=== PATIENT | male | born 1935 | race Asian ===

== ENCOUNTER 2022-01-21 22:08 | Inpatient (IN) | payer MEDICARE ==
[~2022-01-21] VITALS: Ht 165.1 cm; Wt 71.0 kg
[2022-01-21] MEDS ORDERED: amLODIPine BESYLATE 5 MG TAB PO ONE (23:15)
[2022-01-22 00:53] LABS: Urine Amorphous Crystal FEW /hpf (None Seen); Urine Bacteria NONE SEEN /hpf (None Seen); Urine Blood Negative /uL (Negative); Urine Specific Gravity 1.015 (1.001-1.035); Urine WBC <1 /hpf (0 - 3)
[2022-01-22 01:07] LABS: Basophils # (auto) 0 10 ^3/uL (0-0.2); Basophils % (auto) 0.4 % (0.0-2.0); Eosinophils # (auto) 0 10 ^3/uL (0-0.8); Eosinophils % (auto) 0.2 % (0.0-7.0); Hematocrit 38.6 % (41.0-53.0); Hemoglobin 13.2 g/dL (13.5-17.5); Lymphocytes # (auto) 0.6 10 ^3/uL (0.4-5.4); Lymphocytes % (auto) 7.2 % (10.0-50.0); Mean Corpuscular Hemoglobin 33.5 pg (28.0-32.0); Mean Corpuscular Hgb Conc. 34.3 g/dL (32.0-36.0); Mean Corpuscular Volume 97.8 fL (80.0-100.0); Monocytes # (auto) 0.2 10 ^3/uL (0-1.3); Neutrophils # (auto) 6.9 10 ^3/uL (1.6-8.6); Neutrophils % (auto) 89.2 % (37.0-80.0); Red Blood Cells 3.94 10^6/uL (4.5-5.90); White Blood Cell 7.7 10^3/uL (4.4-10.8)
[2022-01-22 01:25] LABS: Calcium 8.7 mg/dL (8.5-10.1); Potassium 4.2 mmol/L (3.5-5.1)
[2022-01-22 01:28] LABS: BUN/Creatinine Ratio 28.9
[2022-01-22 01:31] LABS: Bilirubin, Total 1.2 mg/dL (0.2-1.0); Total Protein 6.9 g/dL (6.4-8.2)
[2022-01-22] MEDS ORDERED: hydrALAZINE HCL 20 MG/ML VL IV ONE (02:00)
[2022-01-22] MEDS ORDERED: ONDANSETRON HCL 4 MG/2 ML VIAL IV PRN (04:45)
[2022-01-22] MEDS ORDERED: DEXTROSE (50%) 50ML SYRG IV PRN (04:45)
[2022-01-22] MEDS ORDERED: ACETAMINOPHEN 325 MG TAB PO PRN (04:45)
[2022-01-22] MEDS ORDERED: MORPHINE SULFATE INJ 2 MG/ml SYRG IV PRN (04:45)
[2022-01-22] MEDS ORDERED: NITROGLYCERIN 0.4 MG SL TAB SL PRN (04:45)
[2022-01-22] MEDS ORDERED: TEMAZEPAM 15 MG CAP PO PRN (04:45)
[2022-01-22] MEDS: LEVOTHYROXINE SODIUM 112 MCG TAB PO SCH (06:44)
[2022-01-22] MEDS: ACCU-CHEK COMFORT CURVE STRIP VI SCH ×4 (06:45→21:36)
[2022-01-22] MEDS: InsuLIN REG 1unit/0.01ml Soln (100units/ml) SC SCH ×4 (06:45→21:40)
[2022-01-22] MEDS: hydrALAZINE HCL 20 MG/ML VL IV PRN (08:40)
[2022-01-22] MEDS: AMIODARONE HCL 200 MG TAB PO SCH (10:15)
[2022-01-22] MEDS: amLODIPine BESYLATE 5 MG TAB PO SCH (10:15)
[2022-01-22] MEDS: RIVAROXABAN 20 MG TAB PO SCH (10:16)
[2022-01-22 20:32] VITALS: BP 149/76
[2022-01-22] MEDS ORDERED: LEVO112T4 PO (20:56)
[2022-01-22] MEDS ORDERED: AMIO200T4 PO (20:56)
[2022-01-23 04:00] VITALS: BP 161/79
[2022-01-23] MEDS: hydrALAZINE HCL 20 MG/ML VL IV PRN (04:01)
[2022-01-23 05:36] LABS: Basophils # (auto) 0 10 ^3/uL (0-0.2); Basophils % (auto) 0.5 % (0.0-2.0); Eosinophils # (auto) 0 10 ^3/uL (0-0.8); Eosinophils % (auto) 0.5 % (0.0-7.0); Hematocrit 41.5 % (41.0-53.0); Lymphocytes # (auto) 0.7 10 ^3/uL (0.4-5.4); Lymphocytes % (auto) 10.6 % (10.0-50.0); Mean Corpuscular Hemoglobin 32.6 pg (28.0-32.0); Mean Corpuscular Hgb Conc. 33.6 g/dL (32.0-36.0); Mean Corpuscular Volume 97.1 fL (80.0-100.0); Monocytes # (auto) 0.4 10 ^3/uL (0-1.3); Monocytes % (auto) 5.4 % (0.0-12.0); Neutrophils # (auto) 5.4 10 ^3/uL (1.6-8.6); Red Blood Cells 4.28 10^6/uL (4.5-5.90); Red Cell Distribution Width 13.6 % (11.8-14.3); White Blood Cell 6.5 10^3/uL (4.4-10.8)
[2022-01-23 05:53] LABS: Albumin 3.6 g/dL (3.4-5.0); Calcium 8.4 mg/dL (8.5-10.1); Potassium 3.8 mmol/L (3.5-5.1)
[2022-01-23 05:55] LABS: BUN/Creatinine Ratio 19.8
[2022-01-23 05:57] LABS: Bilirubin, Total 1.9 mg/dL (0.2-1.0); Total Protein 6.5 g/dL (6.4-8.2)
[2022-01-23] MEDS: ACCU-CHEK COMFORT CURVE STRIP VI SCH ×2 (06:11→11:48)
[2022-01-23] MEDS: LEVOTHYROXINE SODIUM 112 MCG TAB PO SCH (06:11)
[2022-01-23] MEDS: InsuLIN REG 1unit/0.01ml Soln (100units/ml) SC SCH ×2 (06:12→11:30)
[2022-01-23 09:00] VITALS: BP 125/55
[2022-01-23] MEDS: RIVAROXABAN 20 MG TAB PO SCH ×2 (10:00→10:01)
[2022-01-23] MEDS: AMIODARONE HCL 200 MG TAB PO SCH ×2 (10:00→10:01)
[2022-01-23] MEDS: amLODIPine BESYLATE 5 MG TAB PO SCH (10:02)
[2022-01-23] MEDS ORDERED: AML5T PO (10:16)
[2022-01-23 11:04] VITALS: BP 125/55
== END 2022-01-23 13:15 | disposition home or self-care (01) | DRG 305 ==
LOC: EDBD 22:08 → ER 22:08 → TELE 01-22 04:45 → TELE-WESTW 01-22 20:26
PROVIDERS: ADMIT Nurse Practitioner; ATTEND Internal Medicine Pulmonary Disease
DX: I16.0 Hypertensive urgency (principal); I48.91 Unspecified atrial fibrillation; E11.9 Type 2 diabetes mellitus without complications; Z20.822 Contact with and (suspected) exposure to COVID-19; I10 Essential (primary) hypertension; Z95.0 Presence of cardiac pacemaker
CPT/HCPCS: 36415; 80053; 81001; 82962; 84443; 84484; 85025; 96374; 96376; G0378; J1815

== ENCOUNTER 2023-06-29 19:45 | Inpatient (IN) | payer OTHER, MEDICAID ==
[~2023-06-29] VITALS: Ht 160 cm; Wt 72.0 kg
[2023-06-29] MEDS: APIXABAN 2.5 MG TAB PO SCH (01:04)
[~2023-06-29 19:45] MED LIST: AMIO200T13 PO; AML5T PO; LEVO112T4 PO
[2023-06-29 20:57] LABS: Basophils # (auto) 0 10 ^3/uL (0-0.2); Basophils % (auto) 0.3 % (0.0-2.0); Eosinophils # (auto) 0 10 ^3/uL (0-0.8); Eosinophils % (auto) 0.7 % (0.0-7.0); Hematocrit 38.1 % (41.0-53.0); Hemoglobin 12.8 g/dL (13.5-17.5); Lymphocytes # (auto) 0.5 10 ^3/uL (0.4-5.4); Lymphocytes % (auto) 8.5 % (10.0-50.0); Mean Corpuscular Hemoglobin 32.8 pg (28.0-32.0); Mean Corpuscular Hgb Conc. 33.6 g/dL (32.0-36.0); Mean Corpuscular Volume 97.6 fL (80.0-100.0); Monocytes # (auto) 0.4 10 ^3/uL (0-1.3); Monocytes % (auto) 7.1 % (0.0-12.0); Neutrophils # (auto) 4.6 10 ^3/uL (1.6-8.6); Neutrophils % (auto) 83.4 % (37.0-80.0); Red Cell Distribution Width 13.4 % (11.8-14.3); White Blood Cell 5.5 10^3/uL (4.4-10.8)
[2023-06-29] MEDS ORDERED: CLOPIDOGREL BISULFATE 75 MG TAB PO ONE (21:00)
[2023-06-29 21:11] LABS: Alanine Aminotransferase 33 U/L (7-40); Albumin 3.9 g/dL (3.2-4.8); Alkaline Phosphatase 53 U/L (46-116); Anion Gap 6 (5-15); Aspartate Aminotransferase 26 U/L (13-40); BUN/Creatinine Ratio 15.7 (10.0-20.0); Blood Urea Nitrogen 20 mg/dL (9-23); Calcium 8.7 mg/dL (8.7-10.4); Carbon Dioxide 27 mmol/L (20-30); Chloride 112 mmol/L (98-107); Glucose 84 mg/dL (74-106); Potassium 4.2 mmol/L (3.5-5.1); Sodium 145 mmol/L (136-145)
[2023-06-29 21:12] LABS: Bilirubin, Total 1.7 mg/dL (0.2-1.0); Total Protein 6.3 g/dL (5.7-8.2)
[2023-06-29 21:21] LABS: INR 1.15 (0.9-1.15); Partial Thromboplastin Time 29.1 SEC (24.5-34.5)
[2023-06-29] MEDS ORDERED: cloNIDine HCL 0.1 MG TAB PO ONE (21:30)
[2023-06-29 21:49] LABS: Urine Epithelial Cast None Seen /hpf (<5)
[2023-06-29] MEDS ORDERED: ONDANSETRON HCL 4 MG/2 ML VIAL IV PRN (22:00)
[2023-06-29] MEDS ORDERED: HYDROcodone-ACET 5/325MG TAB PO PRN (22:00)
[2023-06-29] MEDS ORDERED: DOCUSATE SOD 100 MG CAP PO PRN (22:00)
[2023-06-29] MEDS ORDERED: DEXTROSE (50%) 50ML SYRG IV PRN (22:00)
[2023-06-29] MEDS ORDERED: ACETAMINOPHEN 325 MG TAB PO PRN (22:00)
[2023-06-29 22:03] LABS: Urine Bacteria NONE SEEN /hpf (None Seen); Urine Blood Negative /uL (Negative); Urine Clarity Clear (Clear); Urine Color Colorless (Yellow); Urine Protein, UAD Negative (Negative); Urine Specific Gravity 1.015 (1.001-1.035); Urine Urobilinogen Normal (Negative); Urine WBC 1 /hpf (0 - 3); Urine pH 6.5 (5.0-8.0)
[2023-06-30] VITALS (9 sets, daily range): BP systolic 131–177; BP diastolic 60–83; PULSE 60; RESP 16–21; TEMP 97.4–98.9; O2SAT 92–98
[2023-06-30] MEDS ORDERED: MORPHINE SULFATE INJ 2 MG/ml SYRG IV PRN
[2023-06-30] MEDS ORDERED: NITROGLYCERIN 0.4 MG SL TAB SL PRN
[2023-06-30] MEDS: InsuLIN REG 1unit/0.01ml Soln (100units/ml) SC SCH ×5 (00:06→21:32)
[2023-06-30] MEDS: ACCU-CHEK COMFORT CURVE STRIP VI SCH ×5 (00:07→21:31)
[2023-06-30] MEDS: SODIUM CHLOR 0.9% PF (SALINE LOCK) 10ML VIAL/SYR IV SCH ×4 (01:04→21:31)
[2023-06-30] MEDS: cloNIDine HCL 0.1 MG TAB PO PRN ×3 (01:19→11:49)
[2023-06-30 06:50] LABS: Basophils # (auto) 0 10 ^3/uL (0-0.2); Basophils % (auto) 0.4 % (0.0-2.0); Eosinophils # (auto) 0 10 ^3/uL (0-0.8); Eosinophils % (auto) 0.3 % (0.0-7.0); Hemoglobin 12.8 g/dL (13.5-17.5); Lymphocytes # (auto) 0.5 10 ^3/uL (0.4-5.4); Lymphocytes % (auto) 6.4 % (10.0-50.0); Mean Corpuscular Hgb Conc. 33.8 g/dL (32.0-36.0); Mean Corpuscular Volume 97.9 fL (80.0-100.0); Monocytes # (auto) 0.5 10 ^3/uL (0-1.3); Monocytes % (auto) 6.9 % (0.0-12.0); Neutrophils # (auto) 6.1 10 ^3/uL (1.6-8.6); Red Blood Cells 3.88 10^6/uL (4.5-5.90); Red Cell Distribution Width 13.7 % (11.8-14.3)
[2023-06-30] MEDS: LEVOTHYROXINE SODIUM 112 MCG TAB PO SCH (07:19)
[2023-06-30 08:09] LABS: Alanine Aminotransferase 32 U/L (7-40); Albumin 3.8 g/dL (3.2-4.8); Alkaline Phosphatase 51 U/L (46-116); Anion Gap 6 (5-15); Aspartate Aminotransferase 27 U/L (13-40); BUN/Creatinine Ratio 14.7 (10.0-20.0); Blood Urea Nitrogen 19 mg/dL (9-23); Calcium 9.3 mg/dL (8.5-10.1); Carbon Dioxide 27 mmol/L (20-30); Chloride 110 mmol/L (98-107); Glucose 80 mg/dL (74-106); Potassium 3.9 mmol/L (3.5-5.1); Sodium 143 mmol/L (136-145)
[2023-06-30 08:10] LABS: Bilirubin, Total 1.9 mg/dL (0.2-1.0); Total Protein 6.1 g/dL (5.7-8.2)
[2023-06-30] MEDS ORDERED: METO25TA93 PO (09:41)
[2023-06-30] MEDS ORDERED: LOSA50TA46 PO (09:41)
[2023-06-30] MEDS ORDERED: FUR20T PO (09:41)
[2023-06-30] MEDS: APIXABAN 2.5 MG TAB PO SCH (09:57)
[2023-06-30] MEDS ORDERED: AMIODARONE HCL 200 MG TAB PO SCH (10:00)
[2023-06-30] MEDS: amLODIPine BESYLATE 5 MG TAB PO SCH (10:00)
[2023-06-30] MEDS ORDERED: amLODIPine BESYLATE 5 MG TAB PO SCH (10:00)
[2023-06-30] MEDS ORDERED: LEVOTHYROXINE SODIUM 112 MCG TAB PO SCH (10:00)
[2023-06-30] MEDS ORDERED: CARB25TA77 PO (10:13)
[2023-06-30 11:11] LABS: Triglycerides 48 mg/dL (< 150)
[2023-06-30 11:12] LABS: LDL Cholesterol 62 mg/dL (< 100)
[2023-06-30 11:13] LABS: Cholesterol 123 mg/dL (< 200); HDL Cholesterol 47 mg/dL (40-59)
[2023-06-30] MEDS: AMIODARONE HCL 200 MG TAB PO SCH (11:48)
[2023-06-30] MEDS: hydrALAZINE HCL 20 MG/ML VL IV PRN (21:25)
[2023-06-30] MEDS: CARBIDOPA W LEVODOPA CR 25/100mg TABLET PO SCH (21:33)
[2023-06-30] MEDS ORDERED: ENOXAPARIN SOD 80 MG/0.8ML SYRINGE SC ONE (22:00)
[2023-07-01] VITALS (10 sets, daily range): BP systolic 116–156; BP diastolic 55–81; PULSE 60; RESP 16–21; TEMP 97.3–98.7; O2SAT 90–97
[2023-07-01] MEDS: LEVOTHYROXINE SODIUM 112 MCG TAB PO SCH (06:16)
[2023-07-01] MEDS: InsuLIN REG 1unit/0.01ml Soln (100units/ml) SC SCH ×4 (06:16→22:24)
[2023-07-01] MEDS: SODIUM CHLOR 0.9% PF (SALINE LOCK) 10ML VIAL/SYR IV SCH ×3 (06:16→22:16)
[2023-07-01] MEDS: ACCU-CHEK COMFORT CURVE STRIP VI SCH ×4 (06:16→22:16)
[2023-07-01 06:32] LABS: Chloride 109 mmol/L (98-107); Potassium 3.8 mmol/L (3.5-5.1); Sodium 141 mmol/L (136-145)
[2023-07-01 06:33] LABS: Anion Gap 6 (5-15); Calcium 8.9 mg/dL (8.5-10.1); Carbon Dioxide 26 mmol/L (20-30)
[2023-07-01 06:38] LABS: BUN/Creatinine Ratio 16.3 (10.0-20.0); Blood Urea Nitrogen 17 mg/dL (9-23); Glucose 90 mg/dL (74-106)
[2023-07-01 06:47] LABS: Basophils # (auto) 0 10 ^3/uL (0-0.2); Basophils % (auto) 0.6 % (0.0-2.0); Eosinophils # (auto) 0.1 10 ^3/uL (0-0.8); Eosinophils % (auto) 1.4 % (0.0-7.0); Hematocrit 37.8 % (41.0-53.0); Hemoglobin 12.8 g/dL (13.5-17.5); Lymphocytes # (auto) 0.8 10 ^3/uL (0.4-5.4); Lymphocytes % (auto) 15.7 % (10.0-50.0); Mean Corpuscular Hemoglobin 33.2 pg (28.0-32.0); Mean Corpuscular Volume 97.9 fL (80.0-100.0); Monocytes # (auto) 0.5 10 ^3/uL (0-1.3); Monocytes % (auto) 9.7 % (0.0-12.0); Neutrophils # (auto) 3.6 10 ^3/uL (1.6-8.6); Neutrophils % (auto) 72.6 % (37.0-80.0); Red Blood Cells 3.86 10^6/uL (4.5-5.90); Red Cell Distribution Width 13.9 % (11.8-14.3)
[2023-07-01] MEDS: CARBIDOPA W LEVODOPA CR 25/100mg TABLET PO SCH ×3 (08:00→18:28)
[2023-07-01] MEDS: hydrALAZINE HCL 20 MG/ML VL IV PRN (08:20)
[2023-07-01] MEDS ORDERED: LORA-655 PO (09:12)
[2023-07-01] MEDS ORDERED: DONE1TAB88 PO (09:13)
[2023-07-01] MEDS: AMIODARONE HCL 200 MG TAB PO SCH (10:00)
[2023-07-01] MEDS ORDERED: ENOXAPARIN SOD 80 MG/0.8ML SYRINGE SC SCH (10:00)
[2023-07-01] MEDS: amLODIPine BESYLATE 5 MG TAB PO SCH (10:00)
[2023-07-01] MEDS ORDERED: LORazepam 2MG/ML-1ML VIAL IV PRN (10:30)
[2023-07-01] MEDS ORDERED: LORazepam 0.5 MG TAB PO PRN (10:30)
[2023-07-01 11:59] LABS: Folate (Folic Acid) 19.71 ng/mL (>5.38)
[2023-07-01 12:02] LABS: Free T4 (Free Thyroxine) 1.37 ng/dL (0.89-1.76)
[2023-07-01 12:53] LABS: Triglycerides 68 mg/dL (< 150)
[2023-07-01 12:54] LABS: LDL Cholesterol 60 mg/dL (< 100)
[2023-07-01 12:56] LABS: Cholesterol 122 mg/dL (< 200); HDL Cholesterol 46 mg/dL (40-59)
[2023-07-01] MEDS: D5W/SOD CHL 0.45% 1,000 ML IV SCH (13:00)
[2023-07-01] MEDS: POLYETHYLENE GLYCOL 17 GM PWDR PO PRN (18:20)
[2023-07-01] MEDS: ENOXAPARIN SOD 80 MG/0.8ML SYRINGE SC SCH (22:16)
[2023-07-01] MEDS: DONEPEZIL HYDROCHLORIDE 5 MG TAB PO SCH (22:16)
[2023-07-02] VITALS (9 sets, daily range): BP systolic 126–168; BP diastolic 45–98; PULSE 60–93; RESP 14–22; TEMP 97.5–98.3; O2SAT 93–100
[2023-07-02] MEDS: InsuLIN REG 1unit/0.01ml Soln (100units/ml) SC SCH ×4 (07:00→21:47)
[2023-07-02] MEDS: ACCU-CHEK COMFORT CURVE STRIP VI SCH ×4 (07:12→21:46)
[2023-07-02] MEDS: SODIUM CHLOR 0.9% PF (SALINE LOCK) 10ML VIAL/SYR IV SCH ×3 (07:12→21:47)
[2023-07-02] MEDS: LEVOTHYROXINE SODIUM 112 MCG TAB PO SCH (07:12)
[2023-07-02] MEDS: D5W/SOD CHL 0.45% 1,000 ML IV SCH (08:37)
[2023-07-02] MEDS: AMIODARONE HCL 200 MG TAB PO SCH (08:37)
[2023-07-02] MEDS: amLODIPine BESYLATE 5 MG TAB PO SCH (08:37)
[2023-07-02] MEDS: ENOXAPARIN SOD 80 MG/0.8ML SYRINGE SC SCH ×2 (08:37→21:41)
[2023-07-02] MEDS: CARBIDOPA W LEVODOPA 25/100mg TABLET PO SCH ×3 (08:37→17:19)
[2023-07-02] MEDS: hydrALAZINE HCL 20 MG/ML VL IV PRN ×2 (08:47→17:19)
[2023-07-02] MEDS ORDERED: PATIENTS OWN MEDICATION (Donepezil Hydrochloride (Donepezil Hcl) 10 MG) PO SCH (10:00)
[2023-07-02] MEDS ORDERED: CYANOCOBALAMIN (B-12) 1000 MCG/1 ML VIAL IM ONE (10:00)
[2023-07-02] MEDS: POLYETHYLENE GLYCOL 17 GM PWDR PO PRN (11:50)
[2023-07-02] MEDS: CYANOCOBALAMIN 500 MCG TAB PO SCH (11:56)
[2023-07-02] MEDS: PSYLLIUM PWD 5.8GM PKG PO SCH (21:39)
[2023-07-02] MEDS: DONEPEZIL HYDROCHLORIDE 5 MG TAB PO SCH (21:40)
[2023-07-02] MEDS: DOCUSATE SOD 100 MG CAP PO SCH (21:42)
[2023-07-03] VITALS (9 sets, daily range): BP systolic 131–166; BP diastolic 56–75; PULSE 60; RESP 18–20; TEMP 98–98.1; O2SAT 97–100
[2023-07-03] MEDS: D5W/SOD CHL 0.45% 1,000 ML IV SCH (05:55)
[2023-07-03] MEDS: SODIUM CHLOR 0.9% PF (SALINE LOCK) 10ML VIAL/SYR IV SCH ×2 (05:55→13:17)
[2023-07-03] MEDS: LEVOTHYROXINE SODIUM 112 MCG TAB PO SCH (05:56)
[2023-07-03] MEDS: ACCU-CHEK COMFORT CURVE STRIP VI SCH ×2 (05:57→12:03)
[2023-07-03] MEDS: InsuLIN REG 1unit/0.01ml Soln (100units/ml) SC SCH ×2 (06:18→12:13)
[2023-07-03] MEDS ORDERED: IOHEXOL 350 MG/ML 100ML IJ ONE (08:31)
[2023-07-03] MEDS: AMIODARONE HCL 200 MG TAB PO SCH (09:24)
[2023-07-03] MEDS: PSYLLIUM PWD 5.8GM PKG PO SCH (09:24)
[2023-07-03] MEDS: ENOXAPARIN SOD 80 MG/0.8ML SYRINGE SC SCH (09:24)
[2023-07-03] MEDS: DOCUSATE SOD 100 MG CAP PO SCH (09:24)
[2023-07-03] MEDS: CYANOCOBALAMIN 500 MCG TAB PO SCH (09:24)
[2023-07-03] MEDS: amLODIPine BESYLATE 5 MG TAB PO SCH (09:25)
[2023-07-03] MEDS: CARBIDOPA W LEVODOPA 25/100mg TABLET PO SCH ×2 (09:25→12:03)
[2023-07-03] MEDS: hydrALAZINE HCL 20 MG/ML VL IV PRN (13:17)
[2023-07-03] MEDS ORDERED: METOPROLOL SUCCINATE XL 50 MG TAB PO ONE (13:30)
[2023-07-03] MEDS ORDERED: LOSARTAN POTASSIUM 50 MG TAB PO ONE (13:30)
[2023-07-03] MEDS ORDERED: RIVSET PO (13:34)
[2023-07-03] MEDS ORDERED: ATOR20TA PO (14:19)
[2023-07-08 07:06] LABS: Homocyst(e)ine 11.5 umol/L (0.0-21.3)
== END 2023-07-03 17:29 | disposition home health service (06) | DRG 64 ==
LOC: EDBD 19:45 → ER 19:45 → TELE 23:49 → TELE-WESTW 06-30 06:55
PROVIDERS: ADMIT Nurse Practitioner Family; ATTEND Internal Medicine Geriatric Medicine
DX: I63.9 Cerebral infarction, unspecified (principal); G93.41 Metabolic encephalopathy; J96.01 Acute respiratory failure with hypoxia; G40.209 Localization-related (focal) (partial) symptomatic epilepsy and epileptic syndromes with complex partial seizures, not intractable, without status epilepticus; I48.20 Chronic atrial fibrillation, unspecified; I48.91 Unspecified atrial fibrillation; I10 Essential (primary) hypertension; I65.23 Occlusion and stenosis of bilateral carotid arteries; E03.9 Hypothyroidism, unspecified; E11.9 Type 2 diabetes mellitus without complications; E66.9 Obesity, unspecified; G30.9 Alzheimer's disease, unspecified; F02.80 Dementia in other diseases classified elsewhere, unspecified severity, without behavioral disturbance, psychotic disturbance, mood disturbance, and anxiety; F17.200 Nicotine dependence, unspecified, uncomplicated; R26.9 Unspecified abnormalities of gait and mobility; G20.A1 Parkinson's disease without dyskinesia, without mention of fluctuations; R29.810 Facial weakness; Z79.01 Long term (current) use of anticoagulants; Z91.148 Patient's other noncompliance with medication regimen for other reason; Z79.82 Long term (current) use of aspirin; Z79.899 Other long term (current) drug therapy; Z82.0 Family history of epilepsy and other diseases of the nervous system; Z82.3 Family history of stroke; Z82.49 Family history of ischemic heart disease and other diseases of the circulatory system; Z83.3 Family history of diabetes mellitus; Z95.0 Presence of cardiac pacemaker; Z68.26 Body mass index [BMI] 26.0-26.9, adult
CPT/HCPCS: 36415; 70450; 70496; 70551; 71045; 80048; 80053; 80061; 81001; 82140; 82607; 82746; 82962; 83036; 83090; 83735; 83880; 84439; 84443; 84484; 85025; 85610; 85730; 92610; 93005; 93306; 93886; 97110; 97116; 97163; 97530; G0378; J1815